=== PATIENT | female | born 1960 | race Two or more races ===

== ENCOUNTER 2023-06-30 08:35 | Emergency (ER) | payer OTHER ==
[~2023-06-30] VITALS: Ht 160 cm; Wt 72.6 kg
[2023-06-30] MEDS ORDERED: COZAAR25 MG (09:02)
[2023-06-30] MEDS ORDERED: LAMICTAL5 MG (09:03)
[2023-06-30] MEDS ORDERED: DIAZEPAM2 MG (09:03)
== END 2023-06-30 13:30 | disposition home or self-care (01) ==
LOC: ER 08:35
DX: K29.70 Gastritis, unspecified, without bleeding (principal); Z88.2 Allergy status to sulfonamides; I10 Essential (primary) hypertension; G40.89 Other seizures
CPT/HCPCS: 36415; 93005; 96365; 96366; 99284; J2405; J3490; J7030